=== PATIENT | male | born 1960 | race Caucasian/White ===

== ENCOUNTER 2016-09-14 23:41 | Inpatient (IN) | payer OTHER ==
[~2016-09-14] VITALS: Ht 185.4 cm; Wt 81.9 kg
[2016-09-14 23:52] VITALS: BP 128/76; PULSE 97; RESP 20; O2SAT 97
[2016-09-15] VITALS (11 sets, daily range): BP systolic 111–157; BP diastolic 60–100; PULSE 75–100; RESP 16–18; O2SAT 93–99
[2016-09-15 00:42] LABS: BASOPHILS % (AUTO) 0.1 % (0-3); EOSINOPHILS % (AUTO) 0.7 % (0-5); MONOCYTES % (AUTO) 7.5 % (4-12); Mean Corpuscular Hemoglobin 28.9 pg (27.0-35.0); Mean Corpuscular Volume 82.7 fL (81-100); NEUTROPHILS % (AUTO) 84.9 % (40-74); Platelet Count 248 bil/L (150-400)
--- NOTE | 2016-09-15 01:47 | ED.REPORT ---
HPI-Rash / Abscess Date of Service Sep 15, 2016 ED Provider: Jordon Bhatti MD Pt is a 55 year old male with a hx of HTN presenting to the ED complaining of 10 /10 left leg pain, redness and swelling onset 3 days ago. Associated symptoms include chills. Denies fever, swelling in the groin. The pt suspects that he may have diabetes but he has not been diagnosed. Nursing Notes Stated Complaint: INFLAMED LEFT LEG Chief Complaint: General Complaint Nursing Notes Reviewed: Yes Allergies: Coded Allergies: Morpholine Analogues (Verified Allergy, Unknown, 09/15/16) Penicillins (Verified Allergy, Unknown, 09/15/16) acetaminophen (Verified Allergy, Unknown, 09/15/16) amoxicillin (Verified Allergy, Unknown, 09/15/16) cyclobenzaprine (Verified Allergy, Unknown, 09/15/16) oxycodone (Verified Allergy, Unknown, 09/15/16) General Time Seen by MD: 01:44 Chief Complaint Red area, Tender/swollen area Hx Obtained From: Patient Arrived By: Walk-in Onset Occurred: 3 days ago Symptom Duration: Since onset Location: : Lower extremity Quality: Painful Severity: Current: Moderate Severity: Maximum: Moderate Associated with: Denies Fever Recent Healthcare: No recent doctor visit, No recent hospitalization Similar Sx Previous: No Past Medical History Past Medical History tetanus shot 06/20/2014 bipolar Chronic neck and back pain Cellulitis of R arm Reports: Hypertension Past Surgical History neck surgery Smoking History Current Every Day Smoker Occupation Unemployed Ambulatory Status Independent Review of Systems Musculoskeletal: Reports: Extremity pain, Extremity swelling Skin: Reports Rash, Reports Swelling Complete sys rev & neg: except as marked. Physical Exam Initial Vital Signs Vital Signs (First) Date Time Temp Pulse Resp B/P Pulse Ox O2 Delivery O2 Flow Rate FiO2 09/14/16 23:52 36.8 97 20 128/76 97 Room Air Initial VS: Reviewed, Vital signs normal Head / Eyes: Atraumatic, Normocephalic, PERRL ENT: Mucous membranes moist, Conjunctiva normal, No scleral icterus Neck: Supple, Non-tender, Full range of motion Respiratory: Breath sounds normal, Clear to auscultation, No respiratory distress Cardiovascular: Regular rate & rhythm, Heart sounds normal, Intact distal pulses Abdomen / GI: Soft, Non-tender, No guarding, No rebound, No distention Neurologic: Alert, Oriented, Nonfocal Psychiatric: Mood/affect normal, Behavior normal, Normal thought content General/Constitutional: Awake, Alert, No acute distress, Well appearing Lower Extremity / Pelvis / MS: Neurologic intact, Vascular intact Right Leg / Calf: Positive: Erythema present, Warmth present Entire left LE from knee down is erythematous and hot. Little area of athletes foot between 4th and 5th toes. Interpretation & Diagnostics Lab Results Interpretation Result Diagram: 09/15/16 0030 09/15/16 0030 Test 09/15/16 00:30 White Blood Count 17.4th/mm3 (3.8-10.1) Red Blood Count 5.09mil/mm3 (4.40-5.80) Hemoglobin 14.7g/dL (13.8-17.2) Hematocrit 42.1% (41.0-50.0) Mean Corpuscular Volume 82.7fL (81-100) Mean Corpuscular Hemoglobin 28.9pg (27.0-35.0) Mean Corpuscular Hemoglobin Concent 34.9% (32.0-37.0) Red Cell Distribution Width 14.5% (12.3-15.4) Platelet Count 248bil/L (150-400) Neutrophils (%) (Auto) 84.9% (40-74) Lymphocytes (%) (Auto) 6.6% (14-46) Monocytes (%) (Auto) 7.5% (4-12) Eosinophils (%) (Auto) 0.7% (0-5) Basophils (%) (Auto) 0.1% (0-3) Sodium Level 136mEq/L (134-144) Potassium Level 3.8mEq/L (3.5-5.2) Chloride Level 95mEq/L (97-108) Carbon Dioxide Level 27mmol/L (18-29) Blood Urea Nitrogen 14mg/dL (6-24) Creatinine 0.75mg/dL (0.76-1.27) Estimat Glomerular Filtration Rate 115mL/min (>59) Glucose Level 145mg/dL (60-99) Lactic Acid Level 1.3mmol/L (0.4-2.0) Calcium Level 8.8mg/dL (8.5-10.1) Total Bilirubin 0.4mg/dL (0.0-1.2) Aspartate Amino Transf (AST/SGOT) 29U/L (0-50) Alanine Aminotransferase (ALT/SGPT) 29U/L (0-44) Alkaline Phosphatase 82U/L (25-150) Total Protein 7.7g/dL (6.4-8.4) Albumin 3.7g/dL (3.4-5.0) Re-Eval/Medical Decision Med Decision/Clinical Course 55-year-old with left leg cellulitis, elevated white blood count at 17,000, but normal lactic acid. He was originally anticipated that he would be going home so he was treated with clindamycin IV to be followed by clindamycin prepack. However it was decided to admit him for further IV therapy. He will be admitted to Dr. De La Torre who requested that decision about further antibiotics be made by the admitting team. Re-Evaluation/Progress : Time of Eval: 05:31 Patient Status: Condition improved Re-Evaluation/Progress Note: Pt resting comfortably. Discussed plan for admission. Pt understands and agrees with plan. Consultation : Referral / Consult Name: Murali De La Torre MD Consulted With: Hospitalist Call Returned at: 05:38 Fruit Harvester: Will see patient, Agrees with plan, Accepts admit Counseled Regarding: Diagnosis, Lab results, Need for follow-up, When/why to return to ED Discharge & Departure Impression: Primary Impression: Cellulitis Site of cellulitis: extremity Site of cellulitis of extremity: lower extremity Laterality: left Qualified Code: L03.116 - Cellulitis of left lower limb Disposition: ADMITTED TO HOSPITAL Discharge Condition All VS Reviewed: Yes Condition: Improved Referrals: NOPCP (PCP) Jennifer Attestation Portions of this note were transcribed by Farrah Conti. I, Dr. Bhatti personally performed the history, physical exam and medical decision-making; I reviewed and confirmed the accuracy of the information in the transcribed note. Signed by: Jennifer Dunn, 09/15/2016 and 0541. Jordon Bhatti MD Sep 15, 2016 01:47 FARRAH CONTI Sep 15, 2016 02:00
[2016-09-15] MEDS ORDERED: 0.9% Sodium Chloride 1,000 ML IV ONE (02:18)
[2016-09-15] MEDS ORDERED: Clindamycin Inj 900 MG in IV Premix 1 EACH IV ONE (02:20)
[2016-09-15] MEDS ORDERED: Ondansetron 2 mg/mL 2 mL Inj IVPUSH PRN (05:45)
[2016-09-15] MEDS ORDERED: Alum-Mag Hydrox-Simeth 30 mL Suspension PO PRN ×2 (05:45→12:20)
[2016-09-15] MEDS ORDERED: _Clindamycin 150 mg Capsule PO SCH (06:30)
[2016-09-15] MEDS ORDERED: AMLO10TA3 PO (06:48)
--- NOTE | 2016-09-15 10:22 | NUR ---
Drug use TURBINE SUBASSEMBLER approached this RN stating that room smelled like smoke. This RN approached patient with TURBINE SUBASSEMBLER and floor RN who was in bathroom with another male. Patient was sitting on toilet. This RN requested that they remove all drugs from bathroom. Patient stated "I don't know how I am going to do this. I haven't had any for 8-10 hours". Patient then gave male person what appeared to be a pipe that was filled with substance. Also dropped 2 SQ needles on floor while doing so. Patient stated needles were new and not used yet. Male then grabbed items and left floor in hurry. Patient then admitted to this RN that he uses 2 grams of heroin every day. Charge nurse notified.
--- NOTE | 2016-09-15 10:39 | NUR ---
Visitors Pt was placed under "No Visitors", upon returning to room to place signage, the male friend whom appeared to have provided drugs to pt was in the room, at this point security requested the male guest leave immediately, pt is under restricted visitors. Guest left with out issue.
--- NOTE | 2016-09-15 10:46 | NUR ---
Social Work: Screen D: Per EMR review, pt is a 55 year old male admitted for Cellulitis Left Leg. Pt is [facility]. PCP is not listed. NOK is Isatu Jacobo, Mother, . Advanced directives offered to pt by RN. Readmit score not entered at this time. Pt discussed in am rounds. There is concern for possible substance use; pt denied during admission however pt has possible needle injection sites in forearms consistent with IV substance use. cnc service technician requesting CD assessment from TAX PROCESSOR. Shortly after request, RN found pt and an unknown male in the pt's bathroom attempting to use heroin. Unknown male left with several SQ needles and a pipe filled with what pt reports to be as heroin. Pt disclosed to RN that he uses heroin every 8-10 hours/daily for a total of 2grams per day. Pt states he has no interest in quitting and that his withdrawal symptoms are not managed with narcotics. Pt spoke of possibly leaving AMA if his withdrawal symptoms are not managed. TAX PROCESSOR spoke with RN. RN has paged hospitalist; he will come see the pt shortly to discuss care plan and options. Pt is being placed on behavior contract and will be allowed no visitors. Pt currently on IV Abx for cellulitis. A: Pt who is from [place] and with ADLs. P: TAX PROCESSOR to follow up with hospitalist re: care plan and to complete CD assessment when appropriate. BIANCA Fraire
[2016-09-15] MEDS ORDERED: LISI-567 PO (11:54)
[2016-09-15] MEDS ORDERED: Polyethylene Glycol (PEG) 17 Gm Powder PO PRN (12:20)
[2016-09-15] MEDS: Vancomycin Dose per Pharmacist XX SCH (12:40)
[2016-09-15] MEDS: Lactated Ringer's 1,000 ML IV SCH (13:03)
--- NOTE | 2016-09-15 13:18 | PCM.HPMED ---
Subjective Date of Service Sep 15, 2016 Primary Provider: Admitting Physician: Murali De La Torre MD Primary Care Physician: Aaron Attending Physician: Murali De La Torre MD Admit Status: From the Emergency Department Chief Complaint: Left lower extremity swelling History of Present Illness: This is a 55 his old male, with past medical history of MRSA, hypertension, heroine dependency, chronic tobacco abuse with a 40 pack smoking. He presented to the hospital with pain and swelling in the left lower extremity which has been going on for 2-3 days or so. Patient soundly have an extensive cellulitis on the left lower extremity from ankle to above the knee. Associated symptoms include chills, subjective fever. Patient denies chest pain , shortness of breath, abdominal pain, no nausea, no vomiting ER workup revealed a leukocytosis of 17,000. Patient is acutely ill with clinical symptom of sepsis and being admitted to the hospital for appropriate care. Patient is homeless. On arrival to the floor, patient was caught by nursing staff preparing a heroine injection. Security was notified and the material and were taken away from him. Patient admits to at least 3 times today heroine injection for many years. Review of Systems: A comprehensive review of system by 12 points is negative except for low extremity cellulitis, pain, fever, chills as described above in history of present illness Allergies Coded Allergies: Morpholine Analogues (Verified Allergy, Unknown, 09/15/16) Penicillins (Verified Allergy, Unknown, 09/15/16) acetaminophen (Verified Allergy, Unknown, 09/15/16) amoxicillin (Verified Allergy, Unknown, 09/15/16) cyclobenzaprine (Verified Allergy, Unknown, 09/15/16) oxycodone (Verified Allergy, Unknown, 09/15/16) Home Medications None PMH MRSA soft tissue infection Tobacco abuse Heroine dependence Hypertension Surgical History Neck surgery ( fusion of vertebrae) Leg surgery ( unspecified) Family History Family history is reviewed and is noncontributory to the present illness Social History Hx Alcohol Use: Yes Hx Substance Use: Yes (cannibus) Smoking Status: Current Every Day Smoker, Heavy Tobacco Smoker (near 40 yeas pack smoking) Living Arrangement: Homeless Exam Vital Signs Vital Sign - Last Date Time Temp Pulse Resp B/P Pulse Ox O2 Delivery O2 Flow Rate FiO2 09/15/16 10:42 36.8 89 16 111/60 93 Room Air Intake and Output 09/14/16 09/14/16 09/15/16 Cumulative From/Thru 15:00 23:00 07:00 09/14/16 23:52 - 09/15/16 06:39 Intake Total 1000 ml 1000 ml Balance 1000 ml 1000 ml Intake IV Total 1000 ml 1000 ml Exam General: Well-nourished male, acutely ill appearing, no acute distress Head: Normocephalic and atraumatic Neck: Supple, no JVD, trachea is midline Chest: Respiratory effort Lung: clear bilaterally, coronal wheezing Heart: S1-S2 regular rate and rhythm without murmur Abdomen: Soft nontender nondistended. Audible bowel sounds quadrant Extremity: Left lower extremity with extensive redness and cellulitis from ankle to above the knee. Tender warmth to touch. Left lower extremity evidently larger in diameter comparing to the right Skin: Multiple tattoos. Neuro : Patient is awake, alert, oriented time 3. Lab and Diagnostics Result Diagram: 09/15/162909/15/1629 Assessment & Plan 1. Sepsis: Presented at admission 1. LE cellulitis/soft tissue infection: Presented on admission 3. H/o Heroin abuse 4. Tobaccoism This is a 55 years male, homeless, history of MRSA and heroin dependence. Vision presented to the hospital with extensive left colectomy to cellulitis involving ankle to above the knee. Patient has signs an clinical symptom of sepsis. His heart rate is on 100 100 Eddie and examined this patient, his white cell count is 17,000, he is hypothermic and look toxic and physical examination. Nursing staff was sent a phone patient preparing his heroin injection in the bathroom, sitting gentleman present for his apparently is his supplier. Security took the drug and his belonging it away from him. Patient stated he uses heroine 3 times a day. Admit to PCU. Obtain left lower extremity ultrasound to rule out DVT. Start clindamycin 600 mg IV every 8 hours. Vancomycin as the pharmacist. Obtain blood culture x 2. Would obtain echocardiogram if blood cultures positive. Lactic acid, pro calcitonin level. IV hydration with normal saline at 100 mL per hour. For pain morphine sulfate 1-2 mg IV every 4 hours when necessary. I discussed with patient about methadone program as an outpatient. I explain to him that we cannot start this medication in the hospital. I expect the morphine to mitigate very likely withdrawal symptom of heroine. This is a very difficult patient careful, given his addiction to heroin . I doubt that he will stay in the hospital to complete his antibiotics treatment. I had a long talk with this patient in front of nursing staff regarding the necessity for IV antibiotics to prevent further complication including septic shock. Patient voiced understanding Adnexa pain for DVT prophylaxis. Nicotine patch for smoking urge consumer services consultant consulted for homelessness and drug dependence. Pain Evaluation: Adequate Pain Control VTE Prophylaxis: Sub-Q Enoxaparin Resuscitation Status: CPR: Attempt Resuscitation Time spent 25 minutes Sher Garcia MD Sep 15, 2016 13:18
--- NOTE | 2016-09-15 13:19 | PCM.PHAPRO ---
Progress Left lower extremity swelling Patient is an 55 y.o. male receiving vancomycin for cellulites. Concurrent abx include: clinda. WBC count is 17.4 and the patient is afebrile. Patient is 82 kg, 73inches tall with a SCr of 0.75 mg/dL-- estimated CrCl of ~ 120mL/min. Based on patient parameters vancomycin will be dosed at 1250mg q12h with a target trough of 10-15 /mL. Trough will be drawn prior to the 4th dose on 09/17 @ 0100. Pharmacy will follow daily and adjust as appropriate. Thank you for the consult in the care of this patient. RTM PharmD John Gregg Sep 15, 2016 13:18
[2016-09-15] MEDS ORDERED: Vancomycin Inj 1,500 MG in 0.9% Sodium Chloride 500 ML IV ONE (14:00)
[2016-09-15] MEDS: Clindamycin Inj 600 MG in IV Premix 1 EACH IV SCH ×2 (14:05→17:23)
[2016-09-15] MEDS: Ondansetron 2 mg/mL 2 mL Inj IVPUSH PRN (17:32)
--- NOTE | 2016-09-15 17:42 | NUR ---
Nausea Pt c/o of all over malaise, nausea, chills, and is diaphoretic, the line drawn on left leg has advance and leg appears redder. Pt afebrile, given zofran 8 mg IVP. Pt states it's not withdrawals, "I normally don't withdrawal until 12-24 hours after last injection." MD notified. Will continue to monitor.
[2016-09-15] MEDS ORDERED: Vancomycin Inj 1,000 MG in IV Premix 1 EACH IV SCH (20:30)
[2016-09-16] VITALS (9 sets, daily range): BP systolic 163–180; BP diastolic 92–109; PULSE 65–84; RESP 18; O2SAT 95–100
--- NOTE | 2016-09-16 00:12 | NUR ---
Bag in linen Small bag with seven round cotton ball like objects in it found in pt's bed during linen change, tossed in sharps container with Khadar Pérez RN witnessing
[2016-09-16] MEDS: Lactated Ringer's 1,000 ML IV SCH ×2 (00:27→07:44)
[2016-09-16] MEDS: Clindamycin Inj 600 MG in IV Premix 1 EACH IV SCH ×2 (00:27→07:33)
[2016-09-16] MEDS: Ondansetron 2 mg/mL 2 mL Inj IVPUSH PRN ×5 (01:35→20:20)
[2016-09-16] MEDS: Vancomycin Inj 1,250 MG in 0.9% Sodium Chloride 250 ML IV SCH ×2 (01:37→16:01)
[2016-09-16] MEDS ORDERED: MetoCLOpramide 5 mg/mL 2 mL Inj IVPUSH PRN (03:50)
--- NOTE | 2016-09-16 06:17 | NUR ---
Withdrawal Symptoms Patient has been experiencing withdrawal symptoms (heroin user) for majority of shift. Patient has severe nausea. Treated with Zofran but as shift progressed the effectiveness was reduced. Paged physician for an order for an additional anti-emetic and order for Reglan was made. Administered Reglan and nausea was decreased so that patient could rest. Treatment for pain in left leg with Morphine 2MG IVP every 4 hours has also been minimally effective in helping with withdrawal symptoms. Patient has asked multiple times if he could "just leave the property for a couple hours so that I can get well?" Advised patient that he is able to leave whenever he chooses but he cannot come back and continue his treatment. Advised that if he leaves it would be against medical advice and he would be discharged. Addendum: 09/16/16 at 0627 by YARA CRUZ RN BP pt's BP was 176/103 in AM, pagemanda and updated, order fro PO Lisinopril obtained.
[2016-09-16 06:44] LABS: Mean Corpuscular Hemoglobin 28.6 pg (27.0-35.0)
[2016-09-16] MEDS: Vancomycin Dose per Pharmacist XX SCH (07:45)
[2016-09-16] MEDS: 0.9% Sodium Chloride 1,000 ML IV SCH (08:49)
[2016-09-16] MEDS ORDERED: Calcium GLUCO 10% (mEq) Inj 4.65 MEQ in Dextrose 5% 50 ML IV ONE (08:50)
[2016-09-16] MEDS ORDERED: Insulin Human REGular 300 Unit/3 mL Inj IV ONE (08:50)
[2016-09-16] MEDS ORDERED: Albuterol 2.5 mg/3 mL Inhalation Solution NEB ONE (08:50)
[2016-09-16] MEDS ORDERED: Dextrose 50% Water 50 mL Inj IV ONE (08:50)
[2016-09-16] MEDS ORDERED: Calcium GLUCO 10% (Gm) 1 Gm/10 mL 50 mL Inj IV ONE (09:15)
--- NOTE | 2016-09-16 09:59 | DRSVH ---
PROCEDURE: US VEINOUS LEG DUPLEX UNILATERAL, LEFT INDICATIONS: edema, pain TECHNIQUE: Real-time imaging, as well as color and pulse Doppler interrogation, were performed of the lower extr emity deep veins from the inguinal ligament to the popliteal fossa. COMPARISON: None. FINDINGS: The deep veins are normally compressible, and free of intraluminal thrombus. Color and pu lse Doppler demonstrate normal phasic intraluminal flow. There is normal augmentation response to di stal compression maneuver. There is significant edema in the lower leg with the calf vessels not wel l visualized. IMPRESSION: 1. No evidence of deep venous thrombosis in the left lower extremity. Dictated by: Clayton Gallegos M.D. on 09/16/2016 at 9:56 Approved by: Clayton Gallegos M.D. on 09/16/2016 at 9:58
[2016-09-16] MEDS: cloNIDine 0.1 mg Tablet PO SCH ×3 (10:43→20:21)
[2016-09-16] MEDS ORDERED: PIPERACILLIN TAZOBACTAM IV SCH (11:30)
[2016-09-16] MEDS: Piper-Tazo 3.375 Gm/50 mL D5W Minibag Plus - Q8H over 4 hrs IV SCH ×4 (12:49→20:20)
--- NOTE | 2016-09-16 15:36 | PCM.PNMED ---
Subjective Date of Service Sep 16, 2016 Subjective This is a 55 year old male, with past medical history of MRSA, hypertension, heroine dependency, chronic tobacco abuse with a 40 pack smoking. He presented to the hospital with pain and swelling in the left lower extremity which has been going on for 2-3 days. This morning he complains of abdominal pain. He is much more alert this morning than yesterday per staff report. He complains of abdominal pain that has been going on since just after arrival. He is having some vomiting this morning after taking a couple bites of breakfast. Exam Vital Signs Vital Sign - Last Date Time Temp Pulse Resp B/P Pulse Ox O2 Delivery O2 Flow Rate FiO2 09/16/16 06:10 36.7 66 18 178/103 97 Room Air Intake and Output 09/15/16 09/15/16 09/16/16 Cumulative From/Thru 15:00 23:00 07:00 09/14/16 23:52 - 09/16/16 06:43 Intake Total 1636 ml 2288 ml 4924 ml Output Total 1725 ml 2440 ml 4165 ml Balance -89 ml -152 ml 759 ml Intake Oral 1636 ml 236 ml 1872 ml IV Total 2052 ml 3052 ml Output Urine Total 1725 ml 2440 ml 4165 ml # Bowel Movements 0 0 0 Exam General: Mild distress and agitation, well-developed, well-nourished HEENT: Normocephalic, atraumatic. External ears without defect. Anicteric sclerae, moist conjunctivae, and no lid lag. Neck: Supple with full range of motion. No jugular venous distension. Cardiovascular: Regular rate and rhythm with no murmurs, rubs, or gallops appreciated Pulmonary: Clear to auscultation bilaterally with no crackles, wheezes, or rhonchi. Normal respiratory effort with no use of accessory muscles. Abdomen: Bowel tones present. Soft, tender in LLQ with rebound tenderness, nondistended, no guarding. No hepatosplenomegaly or masses appreciated. Extremities: Left lower extremity bright red circumferentially 3 inches below the knee to the ankle with pink coloration extending above the knee, warm to the touch. Otherwise no clubbing, cyanosis, edema, or lymphadenopathy appreciated. Skin: LLE as above, multiple tattoos otherwise normal temperature, turgor, and texture; no rash, ulcers, or subcutaneous nodules appreciated. Neurological: Cranial nerves grossly intact. Normal muscle strength, tone, and bulk. No known gait impairment. Psychiatric: Alert and oriented to person, place, and time. Lab and Diagnostics Result Diagram: 09/16/1653409/16/16534 Additional Diagnostics PROCEDURE: US VEINOUS LEG DUPLEX UNILATERAL, LEFT FINDINGS: The deep veins are normally compressible, and free of intraluminal thrombus. Color and pulse Doppler demonstrate normal phasic intraluminal flow. There is normal augmentation response to distal compression maneuver. There is significant edema in the lower leg with the calf vessels not well visualized. IMPRESSION: 1. No evidence of deep venous thrombosis in the left lower extremity. Dictated by: Clayton Gallegos M.D. on 09/16/2016 at 9:56 Assessment & Plan 55 years male, homeless, history of MRSA and heroin dependence with extensive left lower extremity cellulitis involving ankle up to above the knee. 1. Sepsis: Presented at admission His heart rate was 100 on initial examination, his white cell count was 17,000, he has obvious infection of left lower extremity Pro calcitonin elevated at 0.33 Lactic acid normal at 1.3 Blood cultures show no growth after 24 hours obtain echocardiogram if blood cultures positive. IV hydration with normal saline at 100 mL per hour. 2. LE cellulitis/soft tissue infection: Presented on admission I had a long talk with this patient in front of nursing staff regarding the necessity for IV antibiotics to prevent further complication including septic shock. Patient voiced understanding Morphine sulfate 1-2 mg IV every 4 hours when necessary to treat leg pain and will likely mitigate withdrawal symptom of heroine. Ultrasound shows no evidence of deep vein thrombosis in left lower extremity. Vancomycin and Zosyn ordered for antibiotic treatment. 3. H/o Heroin abuse youth services librarian consulted for homelessness and drug dependence Clonidine 0.1 mg every 6 hours to help with hypertension and also withdrawal. Patient was found preparing injection in his bathroom, visiting gentleman apparently was his supplier. Security removed drug and belongings from patient. Patient stated he uses heroine 3 times a day and injects into his neck. He has never injected into his leg Methadone program discussed with patient upon admission, patient aware of inability to discharge from hospital with this medication. 4. Hypertension, present on admission, chronicity unknown Clonidine 0.1 mg every 6 hours When necessary IV labetalol for systolic blood pressure greater than 160 sustained for greater than 30 minutes 5. Tobacco abuse disorder, present on admission 40 pack year history Nicotine patch for smoking urge Lovenox for DVT prophylaxis. VTE Prophylaxis: Sub-Q Enoxaparin Resuscitation Status: CPR: Attempt Resuscitation Attending Statement The patient was seen and examined together with Dr. Leach on 09/16/2016 and I agree with the history, exam and plan as outlined in the note above. Krystle Leach DO Sep 16, 2016 07:37 Shahab Rodrigues MD Sep 17, 2016 14:07
--- NOTE | 2016-09-16 17:33 | NUR ---
Withdrawal Patient continues to have nausea and vomiting. Patient has been administered Zofran for relief and was effective temporarily. Patient has spastic movements to arms and is sleeping most of day. Patient is hard to wake up at times. Patient has received IV morphine for pain.
[2016-09-17] VITALS (11 sets, daily range): BP systolic 138–189; BP diastolic 75–100; PULSE 60–66; RESP 18; O2SAT 97–100
[2016-09-17] MEDS: 0.9% Sodium Chloride 1,000 ML IV SCH ×2 (00:42→16:43)
[2016-09-17] MEDS ORDERED: Vancomycin Serum Trough XX ONE (01:00)
[2016-09-17] MEDS: Labetalol 5 mg/mL 4 mL Inj IVPUSH PRN ×2 (01:05→04:50)
[2016-09-17] MEDS: Ondansetron 2 mg/mL 2 mL Inj IVPUSH PRN ×3 (01:05→21:37)
[2016-09-17] MEDS ORDERED: Vancomycin Inj 1,500 MG in 0.9% Sodium Chloride 500 ML IV SCH (02:30)
[2016-09-17] MEDS: cloNIDine 0.1 mg Tablet PO SCH ×4 (02:42→21:57)
--- NOTE | 2016-09-17 02:43 | PCM.PHAPRO ---
Progress Date of Service: Sep 17, 2016 Vancomycin dosing by pharmacy for 55 y/o man O: * He was receiving vancomycin 1250 mg IV every 12 hours * Vancomycin trough level of 6.8 mcg/mL prior to the fourth dose * SCr of 0.81 mg/dL on 09/16 * Cultures pending A: * The trough is low and will likely remain low once vancomycin concentrations reach steady-state * SCr appears stable so far P: * Increase vancomycin to 1500 mg IV every 12 hours * Target trough range of 10 - 15 mcg/mL * Draw another trough level after 3 doses Thank you. Pharmacy will continue to follow. Princess Trevino, PharmD Princess Trevino Sep 17, 2016 02:43
[2016-09-17] MEDS: Piper-Tazo 3.375 Gm/50 mL D5W Minibag Plus - Q8H over 4 hrs IV SCH ×4 (04:50→12:20)
[2016-09-17 06:40] LABS: BASOPHILS % (AUTO) 0.4 % (0-3); EOSINOPHILS % (AUTO) 0.5 % (0-5); MONOCYTES % (AUTO) 5.9 % (4-12); Mean Corpuscular Hemoglobin 28.7 pg (27.0-35.0); Mean Corpuscular Volume 80.7 fL (81-100); NEUTROPHILS % (AUTO) 84.6 % (40-74); Platelet Count 410 bil/L (150-400)
--- NOTE | 2016-09-17 07:05 | NUR ---
Pain/Hypertension (Assumed at at 2345) Pt c/o pain at left leg and back 04/13, Morphine with Benadryl given, pain sleeping afterwards. Bright red,edema at left LL, elevated on pillow. BP up to 189/100, Labetalol 20mg IV givenx2, recent check in am BP down to 158/89.
[2016-09-17] MEDS: Vancomycin Dose per Pharmacist XX SCH (08:30)
--- NOTE | 2016-09-17 13:51 | NUR ---
Social Work Continued Discharge Planning: SW met with patient at bedside to discuss discharge plans and to conduct CD assessment. Patient didn't arouse for SW. SW to follow at bedside later this afternoon to discuss plans. Per report in rounds, possible echo today. ID plans pending ID consult. SW to follow. Shraddha VALENZUELA
[2016-09-17] MEDS ORDERED: Dalbavancin Inj 1,500 MG in Dextrose 5% 500 ML IV ONE (16:00)
--- NOTE | 2016-09-17 16:01 | PCM.PNMED ---
Subjective Date of Service Sep 17, 2016 Subjective This is a 55 year old male, with past medical history of MRSA, hypertension, heroine dependency, chronic tobacco abuse with a 40 pack smoking. He presented to the hospital with pain and swelling in the left lower extremity which has been going on for 3 days prior to admission. He is doing much better this morning. He reports using methamphetamines in the past and heroine use for the last 2 years. He was able to eat some chocolate today however this is the first time he has not been nauseous with eating in the last 3 days. He reports no headache, chest pain, or abdominal pain. The pain in his leg is more localized to the anterior aspect at this point. Exam Vital Signs Vital Sign - Last Date Time Temp Pulse Resp B/P Pulse Ox O2 Delivery O2 Flow Rate FiO2 09/17/16 06:04 60 158/89 09/17/16 04:23 36.5 18 98 Room Air Intake and Output 09/16/16 09/16/16 09/17/16 Cumulative From/Thru 15:00 23:00 07:00 09/14/16 23:52 - 09/17/16 06:19 Intake Total 2884 ml 3037 ml 22829 ml Output Total 1775 ml 2400 ml 8340 ml Balance 1109 ml 637 ml 2505 ml Intake Oral 1900 ml 1500 ml 5272 ml IV Total 984 ml 1537 ml 5573 ml Output Urine Total 1775 ml 2400 ml 8340 ml # Bowel Movements 0 0 Exam General: No acute distress, well-developed, well-nourished HEENT: Normocephalic, atraumatic. External ears without defect. Anicteric sclerae, moist conjunctivae, and no lid lag. Neck: Supple with full range of motion. No jugular venous distension. Cardiovascular: Regular rate and rhythm with no murmurs, rubs, or gallops appreciated Pulmonary: Clear to auscultation bilaterally with no crackles, wheezes, or rhonchi. Normal respiratory effort with no use of accessory muscles. Abdomen: Bowel tones present. Soft, tender in LLQ with rebound tenderness, nondistended, no guarding. No hepatosplenomegaly or masses appreciated. Extremities: Left lower extremity bright red anteriorly mid duncan in a multilobulated oval shape. [place] skin with shriveling distal to this area, warm to the touch. Otherwise no clubbing, cyanosis, edema, or lymphadenopathy appreciated. Skin: LLE as above, multiple tattoos otherwise normal temperature, turgor, and texture; no rash, ulcers, or subcutaneous nodules appreciated. Neurological: Cranial nerves grossly intact. Normal muscle strength, tone, and bulk. No known gait impairment. Psychiatric: Alert and oriented to person, place, and time. Lab and Diagnostics Result Diagram: 09/17/1653309/17/16533 Additional Diagnostics PROCEDURE: US VEINOUS LEG DUPLEX UNILATERAL, LEFT FINDINGS: The deep veins are normally compressible, and free of intraluminal thrombus. Color and pulse Doppler demonstrate normal phasic intraluminal flow. There is normal augmentation response to distal compression maneuver. There is significant edema in the lower leg with the calf vessels not well visualized. IMPRESSION: 1. No evidence of deep venous thrombosis in the left lower extremity. Dictated by: Clayton Gallegos M.D. on 09/16/2016 at 9:56 Assessment & Plan 55 years male, homeless, history of MRSA and heroin dependence with extensive left lower extremity cellulitis involving ankle up to above the knee. 1. Sepsis: Presented at admission His heart rate was 100 on initial examination, his white cell count was 17,000, he has obvious infection of left lower extremity Procalcitonin elevated at 0.33 Lactic acid normal at 1.3 Blood cultures show single bottle positive with an positive cocci likely strep, ASO pending Echocardiogram pending IV hydration with normal saline at 100 mL per hour. 2. LE cellulitis/soft tissue infection, likely strep Presented on admission Morphine sulfate 1-2 mg IV every 4 hours when necessary to treat leg pain and will likely mitigate withdrawal symptom of heroine. Ultrasound shows no evidence of deep vein thrombosis in left lower extremity. Dalbavancin single dose Vancomycin and Zosyn discontinued Infectious disease consulting, we appreciate their input 3. H/o Heroin abuse foreign exchange services manager consulted for homelessness and drug dependence Clonidine 0.1 mg every 6 hours to help with hypertension and also withdrawal. Patient was found preparing injection in his bathroom, visiting gentleman apparently was his supplier. Security removed drug and belongings from patient. Patient stated he uses heroine 3 times a day and injects into his neck. He has never injected into his leg she started using 2 years ago. Methadone program discussed with patient upon admission, patient aware of inability to discharge from hospital with this medication. 4. Hypertension, present on admission, chronicity unknown Clonidine 0.1 mg every 6 hours Amlodipine 5mg daily 5. Tobacco abuse disorder, present on admission 40 pack year history Nicotine patch for smoking urge Lovenox for DVT prophylaxis. Pain Evaluation: Adequate Pain Control VTE Prophylaxis: Sub-Q Enoxaparin Resuscitation Status: CPR: Attempt Resuscitation Attending Statement The patient was seen and examined together with Dr. Leach on 09/17/2016 and I agree with the history, exam and plan as outlined in the note above. Krystle Leach DO Sep 17, 2016 08:38 Shahab Rodrigues MD Sep 18, 2016 12:44
--- NOTE | 2016-09-17 18:16 | NUR ---
Family Visit Pt's family [mom, dad, and female family member] here to visit pt. Family informed that pt is unable to have visitors at this time, based on MD order and previous events [which we were unable to discuss with family]. Pt's family verbally upset. Spoke with charge out clerk, and MD paged. After more conversation with Md, it was decided that only pt's mom and dad are able to visit [if pt is agreeable to their visit] and only for 15 minutes, with the window open for supervision.
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
[2016-09-18] VITALS (14 sets, daily range): BP systolic 98–179; BP diastolic 63–95; PULSE 53–77; RESP 15–28; O2SAT 96–100
[2016-09-18] MEDS: 0.9% Sodium Chloride 1,000 ML IV SCH ×3 (00:25→22:19)
[2016-09-18] MEDS: cloNIDine 0.1 mg Tablet PO SCH ×4 (03:19→20:43)
--- NOTE | 2016-09-18 04:30 | NUR ---
Assumed Care of pt: Assumed care of pt just after 0130. Pt was sleeping at that time. SB in the 50s on the monitor. Pt later awoke and was medicated with morphine for back and LLE pain. Assessment completed at this time with vitals. Scheduled blood pressure medication administered. Pt denied any nausea during assessment. Pt fell back asleep. Will cont. to monitor.
--- NOTE | 2016-09-18 06:36 | NUR ---
PIV: Pt was up to the bathroom and dislodged/bent his IV. IV unsalvageable. Pt requesting IV therapy to place new PIV. IV therapy called and notified of new IV needed. IVF placed on stanby until new IV is placed.
[2016-09-18 07:08] LABS: BASOPHILS % (AUTO) 0.7 % (0-3); EOSINOPHILS % (AUTO) 1.3 % (0-5); MONOCYTES % (AUTO) 7.3 % (4-12); Mean Corpuscular Hemoglobin 28.7 pg (27.0-35.0); Mean Corpuscular Volume 81.6 fL (81-100); Platelet Count 435 bil/L (150-400)
[2016-09-18] MEDS ORDERED: Propofol 10,000 mCg/mL 20 mL Inj ONE (08:41)
[2016-09-18] MEDS ORDERED: Succinylcholine Chloride 20 mg/mL 5 mL Inj ONE (08:41)
[2016-09-18] MEDS ORDERED: fentaNYL-PF 50 mCg/mL 2 mL Inj ONE (08:41)
[2016-09-18] MEDS ORDERED: Rocuronium 10 mg/mL 5 mL Inj ONE (08:41)
[2016-09-18] MEDS: Ondansetron 2 mg/mL 2 mL Inj IVPUSH PRN (08:53)
--- NOTE | 2016-09-18 11:54 | DRSVH ---
[facility] [address] [place] [address] Echocardiogram Report Name: ARTHUR RANGEL Date: 09/18/2016 Height: 73 in Hospital Exam Location: [facility] Weight: 180 lb Gender: Male BSA: 2.1 m2 : 1960 Age: 55 yrs BP: 179/95 mmHg Reason For Study: POSITIVE BLOOD CULTURES Ordering Physician: Performed By: Leeann MCKEONIST [facility] Interpretation Summary The left ventricle is normal in size. The ejection fraction is estimated to be 60-65%. The right ventricle is normal in size and function. No significant valvular pathology seen. No obvious valvular vegetation seen. Consider AVEL if clinical suspicion for endocarditis is high. The ascending aorta is mildly enlarged. Procedure: A two-dimensional transthoracic echocardiogram with color flow and Doppler was performed. The study quality was technically adequate. There is no prior echocardiogram noted for this patient. The patient was in sinus bradycardia with heart rates between 50-65 bpm during the exam. Left Ventricle: The left ventricle is normal in size. Proximal septal thickening is noted. There is no echo evidence for significant left ventricular outflow tract obstruction. There is no thrombus. The ejection fraction is estimated to be 60-65%. There are no focal wall motion abnormalities. Spectral Doppler of the mitral valve shows a normal E/A wave ratio. Right Ventricle: The right ventricle is normal in size and function. Atria: The left atrium is mildly dilated. Right atrial size is normal. The interatrial septum is intact with no evidence for an atrial septal defect. There is no Doppler evidence for an interatrial shunt. Mitral Valve: The mitral valve leaflets are slightly calcified. There is no vegetation seen on the mitral valve. Redundant elongated chordae are noted. There is trace mitral regurgitation. Aortic Valve: The aortic valve is normal in structure and function. There is no aortic valvular vegetation. There is no aortic valve stenosis. No aortic regurgitation is present. Tricuspid Valve: The tricuspid valve is normal in structure and function. There is no tricuspid valve vegetation. There is trace tricuspid regurgitation. The right ventricular systolic pressure is estimated at 25 mmHg assuming a right atrial pressure of 3 mm Hg. Pulmonic Valve: The pulmonic valve is not well seen, but is grossly normal. No gross evidence of valvular vegetation. There is no pulmonic valvular regurgitation. Great Vessels: The aortic root is at the upper limits of normal in size. There is aortic root sclerosis/calcification. The ascending aorta is mildly enlarged. The IVC is of normal diameter and collapses greater than 50% with a sniff. This suggests a low right atrial pressure of 3 mm Hg. Pericardium/ Pleura There is no pericardial effusion. MMode/2D Measurements & Calculations LVIDd: 5.0 cm LA dimension: 3.8 cm RA long axis LVOT diam LVIDs: 2.7 cm FS: 44.9 % LA A2 area: 24.6 cm RA area AoV Opening EPSS: 0.43 cm LA A4 area: 18.9 cm IVSd: 1.00 cm LA length (vol): 5.2 cm: 15.6 cm Ao root diam LVPWd: 1.4 cm LA vol: 75.5 ml RA vol LA vol index : 43.7 ml Aortic Jxn RA : 21.2 mm2 asc Aorta IVC diam: 1.4 cm Diam: 3.7 cm LV sandoval. diameter/BSA LV sys. diameter/BSA RVD1 (basal) (cm/m^2): 2.4 (cm/m^2): 1.3 Doppler Measurements & Calculations Ao V2 max MV E max tato MV E/A: 1.4 TR max tato : 138.2 cm/sec : 78.3 cm/sec Med Peak E' Tato : 234.8 cm/sec Ao max PG MV A max tato TR max PG : 7.6 mmHg : 54.4 cm/sec E/E' med: 10.5 : 22.0 mmHg Ao mean PG MV P1/2t: 63.0 msec Lat Peak E' Tato PA V2 max : 82.1 cm/sec LVOT Max Tato E/E' lat: 6.4 PA mean PG : 114.4 cm/sec E/e' average: 8.5 Pulm A Revs Dur PA Accel Time ADIA(I,D): 3.3 cm : 0.11 sec sev ratio MV A dur: 0.12 sec MV dec time MV P1/2t max tato Ao V2 mean LV V1 max PG : 0.22 sec : 94.9 cm/sec MVA(P1/2t): 3.5 cm2 Ao V2 VTI: 26.3 cm LV V1 VTI ADIA(V,D): 3.6 cm2 : 19.8 cm PA V2 mean ADIA indexed to BSA Pulm A Revs Dur - MV : 57.4 cm/sec (cm^2/m^2): 1.6 A Dur: 0.02 msec Reading Physician:LUIS
--- NOTE | 2016-09-18 13:18 | PROG NOTE ---
[address] [address] PROGRESS NOTE PATIENT: ARTHUR RANGEL : 1960 MR#: [id number] ADMIT: 09/15/2016 JOB ID: [id number] DATE: 09/18/2016 INFECTIOUS DISEASE FOLLOW UP NOTE: REASON FOR FOLLOWUP: Left lower extremity cellulitis. INTERVAL HISTORY: The patient reports that in general his left lower extremity below the knee is getting better and better but the central area of tenderness and inflammation right around the mid tibia is no better and still very tender and warm. He has no fevers, though he does note some chills overnight. No significant sweats. No cough, shortness of breath, chest pain, nausea or vomiting. PHYSICAL EXAMINATION: Reveals an afebrile gentleman, temperature 36.9, pulse 56, respiratory rate 24, blood pressure 144/80. He is lying in bed, in no acute distress. Oral cavity benign. Lungs clear. Cardiac tones without murmur. The left lower extremity has about a 6 x 4 area now right around the mid tibial shaft of intense erythema which does now appear to be developing some fluctuance as if it may be an abscess, but there is no spontaneous drainage. The rest of the leg has essentially normalized. LABORATORIES: Include a white count of 11,000, 77% segs. His creatinine is 0.71. LFTs are normal. Procalcitonin is down to 0.1. Streptozyme positive at 723, a very strongly positive reading which indicates this is all likely group A strep. Hep C and HIV are pending. In terms of micro, one blood culture grew coag-negative staph, which I assumed to be a contaminant. IMPRESSION: This patient has a streptococcal infection of the left lower extremity which is largely resolved but he is left with what appears to be an evolving central abscess. Yesterday, because of his concerns about IV access and a possible AMA discharge, we gave him a dose of dalbavancin to make sure he had good antibiotic coverage for this infection on board. At this point, he requires no other antibiotics. He may, however, require an incision and drainage if this starts to evolve into a more focal fluctuant abscess as opposed to the more diffuse cellulitic process when he came in. RECOMMENDATIONS: 1. No additional antibiotics. 2. His IV could probably be pulled at this point, as he is receiving some maintenance fluids but is actually drinking fairly well. 3. I would ask surgery whether or not an I and D is indicated. 4. Regardless of whether the patient gets an I and D or not, he has essentially completed his course of antibiotics and could be discharged at anytime without additional oral or IV antibiotics. 5. ID will go ahead and sign off at this time as there are no additional active issues. Please do not hesitate to call me if there are questions or issues with this patient.
[2016-09-18] MEDS ORDERED: Vancomycin Serum Trough XX ONE (14:00)
--- NOTE | 2016-09-18 14:49 | PCM.PNMED ---
Subjective Date of Service Sep 18, 2016 Subjective This is a 55 year old male, with past medical history of MRSA, hypertension, heroine dependency, chronic tobacco abuse with a 40 pack smoking. He presented to the hospital with pain and swelling in the left lower extremity which has been going on for 3 days prior to admission. Patient reports feeling better this morning, no headache, abdominal pain, chest pain, or shortness of breath. He continues to have some difficulty ambulating on his left leg if it remains painful to do so. Exam Vital Signs Vital Sign - Last Date Time Temp Pulse Resp B/P Pulse Ox O2 Delivery O2 Flow Rate FiO2 09/18/16 04:00 75 09/18/16 03:12 36.6 28 179/95 99 Room Air Intake and Output 09/17/16 09/17/16 09/18/16 Cumulative From/Thru 15:00 23:00 07:00 09/14/16 23:52 - 09/18/16 06:32 Intake Total 3161 ml 2535 ml 16475 ml Output Total 2850 ml 3450 ml 53242 ml Balance 311 ml -915 ml 1901 ml Intake Oral 1800 ml 1500 ml 8572 ml IV Total 1361 ml 1035 ml 7969 ml Output Urine Total 2850 ml 3450 ml 60879 ml # Bowel Movements 0 0 Exam General: No acute distress, well-developed, well-nourished HEENT: Normocephalic, atraumatic. External ears without defect. Anicteric sclerae, moist conjunctivae, and no lid lag. Neck: Supple with full range of motion. No jugular venous distension. Cardiovascular: Regular rate and rhythm with no murmurs, rubs, or gallops appreciated Pulmonary: Clear to auscultation bilaterally with no crackles, wheezes, or rhonchi. Normal respiratory effort with no use of accessory muscles. Abdomen: Bowel tones present. Soft, tender in LLQ with rebound tenderness, nondistended, no guarding. No hepatosplenomegaly or masses appreciated. Extremities: Left lower extremity bright red anteriorly mid duncan in a multilobulated oval shape. This area is more pronounced today with palpable fluctuance. Shriveling skin due to reduced edema surrounding edema and distal to this area, warm to the touch. Otherwise no clubbing, cyanosis, edema, or lymphadenopathy appreciated. Skin: LLE as above, multiple tattoos otherwise normal temperature, turgor, and texture; no rash, ulcers, or subcutaneous nodules appreciated. Neurological: Cranial nerves grossly intact. Normal muscle strength, tone, and bulk. Psychiatric: Alert and oriented to person, place, and time. Lab and Diagnostics Result Diagram: 09/18/1662909/18/16629 Cardiac Echo Impressions Interpretation Summary The left ventricle is normal in size. The ejection fraction is estimated to be 60-65%. The right ventricle is normal in size and function. No significant valvular pathology seen. No obvious valvular vegetation seen. Consider AVEL if clinical suspicion for endocarditis is high. The ascending aorta is mildly enlarged. Additional Diagnostics PROCEDURE: US VEINOUS LEG DUPLEX UNILATERAL, LEFT FINDINGS: The deep veins are normally compressible, and free of intraluminal thrombus. Color and pulse Doppler demonstrate normal phasic intraluminal flow. There is normal augmentation response to distal compression maneuver. There is significant edema in the lower leg with the calf vessels not well visualized. IMPRESSION: 1. No evidence of deep venous thrombosis in the left lower extremity. Dictated by: Clayton Gallegos M.D. on 09/16/2016 at 9:56 Assessment & Plan 55 years male, homeless, history of MRSA and heroin dependence with extensive left lower extremity cellulitis involving ankle up to above the knee. 1. Sepsis: Present on admission His heart rate was 100 on initial examination, his white cell count was 17,000, he has obvious infection of left lower extremity Procalcitonin elevated at 0.33 Lactic acid normal at 1.3 Blood cultures show single bottle positive with an positive cocci likely strep, ASO elevated at 722.9 Echocardiogram shows no obvious valvular vegetation and mildly enlarged ascending aorta. Left ventricular ejection fraction estimated to be 60-65%. IV hydration with normal saline at 100 mL per hour. 2. LE cellulitis/soft tissue infection, likely strep, Present on admission Morphine sulfate 1-2 mg IV every 4 hours when necessary to treat leg pain and will likely mitigate withdrawal symptom of heroine. Ultrasound shows no evidence of deep vein thrombosis in left lower extremity. Surgery consultation, Anterior left lower leg abscess to be drained this afternoon. Dalbavancin single dose Vancomycin and Zosyn discontinued Infectious disease consulting, we appreciate their input 3. 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 Patient was found preparing injection in his bathroom, visiting gentleman apparently was his supplier. Security removed drug and belongings from patient. Patient stated he uses heroine 3 times a day and injects into his neck. He states he has never injected into his leg. He started using 2 years ago. Methadone program discussed with patient upon admission, patient aware of inability to discharge from hospital with this medication. 4. Hypertension, present on admission, chronicity unknown Clonidine 0.1 mg every 6 hours Amlodipine 5mg daily 5. Tobacco abuse disorder, present on admission 40 pack year history Nicotine patch for smoking urge Lovenox for DVT prophylaxis. Pain Evaluation: Adequate Pain Control VTE Prophylaxis: Sub-Q Enoxaparin Resuscitation Status: CPR: Attempt Resuscitation Attending Statement The patient was seen and examined together with Dr. Leach on 09/18/2016 and I agree with the history, exam and plan as outlined in the note above. Krystle Leach DO Sep 18, 2016 08:17 Shahab Rodrigues MD Sep 26, 2016 13:56
--- NOTE | 2016-09-18 15:01 | CONS ---
[address] [address] CONSULTATION REPORT PATIENT: ARTHUR RANGEL : 1960 MR#: [id number] ADMIT: 09/15/2016 JOB ID: [id number] DATE OF SERVICE: 09/18/2016 CHIEF COMPLAINT: A 55-year-old gentleman with left lower extremity abscess seen in consultation at the request of Rosey Barrios D.O. HISTORY OF PRESENT ILLNESS: The patient is a 55-year-old gentleman who presented to the hospital on September 15, 2016 with pain and swelling in the left lower extremity for 2-3 days. He has history of heroin dependency and he reports currently injects himself in the neck but he denies injecting himself in the leg. He was diagnosed with left lower extremity cellulitis after doing an ultrasound to rule out DVT and was treated with antibiotics. He improved in terms of his white count but his leg infection evolved into more fluctuant swelling consistent with an abscess prompting a surgical consultation today. PRIOR MEDICAL PROBLEMS: 1. MRSA soft tissue infection. 2. Hypertension. PRIOR OPERATIONS: Cervical spine fusion. SOCIAL HISTORY: He has been smoking for 40 years. He does drink alcohol. He does use heroin. He lives in [place] reportedly with three dogs. REVIEW OF SYSTEMS: Twelve point review of systems negative other than the pertinent positives noted in the history of present illness and prior medical problems. ALLERGIES: 1. MORPHINE. 2. PENICILLIN. 3. ACETAMINOPHEN. 4. AMOXICILLIN. 5. CYCLOBENZAPRINE. 6. OXYCODONE. MEDICATIONS AT HOME: Amlodipine. CURRENT MEDICATIONS: 1. Clonidine. 2. Amlodipine. 3. Lisinopril. 4. Nicotine. 5. Lovenox. 6. Vancomycin. 7. Zosyn. INVESTIGATIONS: White blood cell count 11.9 today, down from 17.1 yesterday. Platelet count 435, hemoglobin 15.9, creatinine 0.71. PHYSICAL EXAMINATION: A 55-year-old male in no acute distress. Temperature 36.6, pulse 57, respiratory rate 24, blood pressure 144/80, saturating 97% on room air. Eyes: Normal pupils, conjunctivae. Ears, nose, and throat normal external appearance. Neck: No adenopathy or jugular venous distention. Respiratory: Normal effort, clear to auscultation. Cardiovascular: Regular rate and rhythm. Gastrointestinal: Abdomen is soft. Skin: About a 6 cm area of erythema and fluctuance on the anterior aspect of the left leg. Neurologic: No gross deficits. Psych: Alert, appropriate. Musculoskeletal: Normal strength in extremities. ASSESSMENT AND PLAN: Left lower extremity abscess. Discussed pathophysiology and treatment rationale and recommended incision and drainage. He understands the risks, is willing to change the dressings and he is interested in going home sooner than later.
--- NOTE | 2016-09-18 15:31 | NUR ---
Off Unit: Patient transported to OR via stretcher @ approx 1530. Telemetry removed, shelter monitor notified. VSS. No apparent distress noted at time of transport.
--- NOTE | 2016-09-18 15:47 | PCM.HPANE ---
Patient Data Date of Service: Sep 18, 2016 Surgeon Admitting Provider:Murali De La Torre MD Attending Provider:Murali De La Torre MD Primary Care Physician:Aaron Other Provider: Reason for Visit Cellulitis L Leg CELLULITIS L LEG Ht/WT & BMI Height (Feet): 6 Height (Inches): 1.00 Weight (Kilograms): 81.900 Body Mass Index 23.93 Allergies Coded Allergies: Morpholine Analogues (Verified Allergy, Unknown, 09/15/16) Penicillins (Verified Allergy, Unknown, 09/15/16) acetaminophen (Verified Allergy, Unknown, 09/15/16) amoxicillin (Verified Allergy, Unknown, 09/15/16) cyclobenzaprine (Verified Allergy, Unknown, 09/15/16) oxycodone (Verified Allergy, Unknown, 09/15/16) Diabetes History Hx Diabetes?: No Current Bedside Blood Glucose: 122 MRSA MRSA: No Medications Reported Medications Lisinopril 20 Mg [id number] Mg PO DAILY 30 Days Ref 0 09/15/16 Amlodipine 10 Mg [id number] Mg PO BID Ref 0 09/15/16 History History of ENT Problems?: No Hx of Heart Problems?: Yes Cardiovascular History: Positive for:: Hypertension Denies:: Congestive Heart Failure Hx of Respiratory Problem?: No Respiratory History: Denies:: Tuberculosis Hx Neurologic Problems?: No Neurological History: Positive for:: Headaches (migraines) Seizures (grand mal) Hx of GI Problems?: No Hx of Problems?: No Male Hx: Denies:: Prostate Problems Scrotal Mass Testicular Surgery Hx Musculoskeletal Problems?: Yes Musculoskeletal History: Positive for:: Back Injury (fused ) Hx of Psycho/Social Problems?: No Hx Surgeries?: Yes (Neck C5-C6) Hx Any Other Health Problems?: Yes History Blood Transfusions: Positive for:: Accept Blood Products? Denies:: Blood Transfuse Reaction Blood Transfusions Hx Diabetes: NoBedside Blood Glucose: 122 Hx Alcohol Use: YesHx Substance Use: Yes (cannibus) Smoking Status: Current Every Day Smoker Heavy Tobacco Smoker (near 40 yeas pack smoking) Have You Smoked inLast 12 mo: YesApprox How Many Cigarettes/day: 20 daily Stop/Bang Treated for Sleep Apnea?: No Do You Have a CPAP Machine?: No S-Snoring: Do You Snore Loudly: No T-Tired: feel tired, fatigued: No O-Obsered: Observed not breath: No P-Blood Pressure: treated: Yes B- Body Mass Index > 35 kg/m2: No A- Age over 50: Yes N- Neck Large Circumference: No G- Gender Male: Yes AGNES Total Score: 2 AGNES Risk Assessment: Low Risk, <3 Yes Risk Assessment Category Category 1A: Patient has history of documented sleep apnea, and HAS NOT received any narcotic, sedative or anesthesia administration during this stay. Category 1B: Patient has history of documented sleep apnea, and HAS received any narcotic , sedative or anesthesia administration during this stay Category 2: Patient has SUSPECTED Obstructive Sleep Apnea, and HAS received any narcotic , sedative or anesthesia administration during this stay. Category 3: Patient has SUSPECTED Obstructive Sleep Apnea and HAS NOT received narcotic, sedative or anesthesia administration during this stay. Category 4: Outpatient in Procedural Areas with known sleep apnea or who screen positive for High Risk via the STOP/BANG questionnaire. Exam Exam Vital Signs Vital Signs Date Time Temp Pulse Resp B/P Pulse Ox O2 Delivery O2 Flow Rate FiO2 09/18/16 13:43 37.0 63 22 154/79 98 Room Air 09/18/16 10:47 56 09/18/16 09:57 36.9 53 24 144/80 97 Room Air General Appearance: Alert, Oriented X3, Cooperative, Mild Distress HEENT/AIRWAY: MP 1 Lungs: Clear to Auscultation, Normal Air Movement Heart: Exam Unremarkable, Normal S1, Normal S2 Meds/Labs/Diagnostics Admission Meds Current Medications Dalbavancin/ Dextrose/Water (Dalvance Inj/ D5W) 500 ml @ 1,000 mls/hr ONCE ONCE IV Last administered on 09/17/16t 16:43; Start 09/17/16 at 16:00; Stop at 16:29; Status DC Bedside Blood Glucose: 122 Labs Test 09/15/16 00:30 09/17/16 00:52 09/17/16 05:34 09/18/16 06:30 Lactic Acid Level 1.3mmol/L (0.4-2.0) Vancomycin Level Trough 6.8mcg/mL Streptozyme 722.9IU/mL (0.0-200.0) Procalcitonin 0.11ng/mL (0.00-0.08) White Blood Count 11.9th/mm3 (3.8-10.1) Red Blood Count 5.54mil/mm3 (4.40-5.80) Hemoglobin 15.9g/dL (13.8-17.2) Hematocrit 45.2% (41.0-50.0) Mean Corpuscular Volume 81.6fL (81-100) Mean Corpuscular Hemoglobin 28.7pg (27.0-35.0) Mean Corpuscular Hemoglobin Concent 35.2% (32.0-37.0) Red Cell Distribution Width 14.0% (12.3-15.4) Platelet Count 435bil/L (150-400) Neutrophils (%) (Auto) 77.0% (40-74) Lymphocytes (%) (Auto) 13.0% (14-46) Monocytes (%) (Auto) 7.3% (4-12) Eosinophils (%) (Auto) 1.3% (0-5) Basophils (%) (Auto) 0.7% (0-3) Sodium Level 143mEq/L (134-144) Potassium Level 4.0mEq/L (3.5-5.2) Chloride Level 104mEq/L (97-108) Carbon Dioxide Level 20mmol/L (18-29) Blood Urea Nitrogen 5mg/dL (6-24) Creatinine 0.71mg/dL (0.76-1.27) Estimat Glomerular Filtration Rate 123mL/min (>59) Glucose Level 99mg/dL (60-99) Calcium Level 8.4mg/dL (8.5-10.1) Total Bilirubin 0.4mg/dL (0.0-1.2) Aspartate Amino Transf (AST/SGOT) 32U/L (0-50) Alanine Aminotransferase (ALT/SGPT) 23U/L (0-44) Alkaline Phosphatase 74U/L (25-150) Total Protein 7.0g/dL (6.4-8.4) Albumin 3.4g/dL (3.4-5.0) Plan Impression Patient chart reviewed, patient interviewed and anesthestic plan with risks, benefits, and alternatives discussed, and informed consent obtained. ASA Physical Status: ASA2 Plus Emergency Anesthetic Plan: GA Bene/Risks/Altern/Consents: Yes HP Complete Prior to Induction: Yes Fran Suggs DO Sep 18, 2016 15:47
[2016-09-18] MEDS ORDERED: Lactated Ringer's 1,000 ML IV ONE (15:51)
[2016-09-18] MEDS ORDERED: Bupivacaine-MPF 0.5% 30 mL Inj INFILTRATE ONE (16:16)
--- NOTE | 2016-09-18 16:20 | NUR ---
Social Work: Attempted CD assessment Data: DRIVER GUIDE attempted chemical dependency assessment with pt, but pt is currently in the OR. DRIVER GUIDE will attempt again on 09/19/16. BIANCA Hooper
--- NOTE | 2016-09-18 16:33 | PCM.ANEP1 ---
Post Anesthesia Phase 1 PACU Phase 1 Assessment Date of Service: Sep 18, 2016 Vital Signs Vital Signs Date Time Temp Pulse Resp B/P Pulse Ox O2 Delivery O2 Flow Rate FiO2 09/18/16 13:43 37.0 63 22 154/79 98 Room Air 09/18/16 10:47 56 09/18/16 09:57 36.9 53 24 144/80 97 Room Air Anesthetic Administered: GA Level of Alertness: Drowsy, not talking REDMAN's with Equal Strength: Yes Pain: No Pain Scale Score: 6 Nausea or Vomiting: No Oxygen Delivery: Simple Mask (6l) Lungs: Clear to Auscultation, Normal Air Movement Dermatome Level: Full Sensation Fran Suggs DO Sep 18, 2016 16:33
[2016-09-18] MEDS ORDERED: Lactated Ringer's 500 ML IV PRN (16:37)
[2016-09-18] MEDS ORDERED: Lactated Ringer's 1,000 ML IV SCH (16:37)
[2016-09-18] MEDS ORDERED: fentaNYL-PF 50 mCg/mL 2 mL Inj IVPUSH PRN (16:40)
[2016-09-18] MEDS ORDERED: EPHEDrine Sulfate 50 mg/mL Inj IVPUSH PRN (16:40)
[2016-09-18] MEDS ORDERED: Phenylephrine 10,000 mCg/mL Inj IVPUSH PRN (16:40)
[2016-09-18] MEDS ORDERED: HYDROmorphone 1 mg/mL Inj IVPUSH PRN (16:40)
--- NOTE | 2016-09-18 16:41 | PCM.ANEP2 ---
Post Anesthesia Evaluation ASA/CMS Post Anesthesia Date of Service: Sep 18, 2016 VS in Patient's Normal Range?: Yes Resp Stable; Airway Patent?: Yes CV Function & Hydration Stable: Yes Mental Status Recovered?: Yes Pain control Satisfactory?: Yes N/V Control Satisfactory?: Yes Fran Suggs DO Sep 18, 2016 16:41
--- NOTE | 2016-09-18 17:02 | PCM.SURGPO ---
Immediate Operative Note Date of Surgery: Sep 18, 2016 Pre Operative Diagnosis Left lower extremity abscess Post Operative Diagnosis Left lower extremity abscess Procedure Incision and drainage of left lower extremity abscess Surgeon and [employer] Worker Surgeon: Gloria Hopper MD Assistants: None Findings Excised a 3.5cm ellipse of skin to drain the abscess. Sent cultures Complications There were no periprocedural complications identified. Surgical Specimen Removed: Yes Specimen sent to Pathology: No Surgical Specimen description: Pus for culture Anesthetic Administered: GA Grafts, Implants: None Output, Estimated Blood Loss: 0 Blood Admin during surgery: No Gloria Hopper MD Sep 18, 2016 17:02
--- NOTE | 2016-09-18 17:22 | OP ---
[address] [address] OPERATIVE REPORT PATIENT: ARTHUR RANGEL : 1960 MR#: [id number] ADMIT: 09/15/2016 JOB ID: [id number] DATE OF SURGERY: 09/18/2016 PREOPERATIVE DIAGNOSIS(ES): Left lower extremity abscess. POSTOPERATIVE DIAGNOSIS(ES): Left lower extremity abscess. PROCEDURE PERFORMED: Incision and drainage of left lower extremity abscess. SURGEON: Gloria Hopper MD. ENGRAVER AUTOMATIC: None. COMPLICATIONS: None. INDICATIONS: The patient is a 55-year-old gentleman with history of heroin abuse and multiple infections in the past. Came in with left lower extremity cellulitis and was initially found to have no evidence of abscess, but after three days of antibiotics the infection has consolidated into a fluctuant swelling on the front of the leg. After discussing the risks, benefits, and alternatives, he was brought to the operating room today for incision and drainage. PROCEDURE DETAILS: He was placed in a supine position and underwent smooth induction of general anesthesia. The left anterior leg was prepped and draped in the usual sterile fashion. Surgical time-out was undertaken using safety checklist, and all were in agreement. I 1st aspirated the site over the most fluctuant aspect on the lateral aspect of the leg and sent fluid for culture. Then, made an incision with electrocautery getting into the subcutaneous space with the abscess. I then explored the abscess cavity, going medially and laterally, with suction and removed a 3.5 cm ellipse of skin to facilitate wound care. After ensuring there was no undrained pus and ensuring good hemostasis, I infiltrated the site with 0.5% bupivacaine and packed it with Kerlix and using the same to dress the wound. He was then recovered from anesthesia and was taken to the recovery room in stable condition.
[2016-09-19] VITALS (8 sets, daily range): BP systolic 131–181; BP diastolic 68–92; PULSE 55–86; RESP 18–22; O2SAT 96–100
[2016-09-19] MEDS: cloNIDine 0.1 mg Tablet PO SCH ×4 (02:55→20:02)
[2016-09-19 06:29] LABS: BASOPHILS % (AUTO) 0.8 % (0-3); EOSINOPHILS % (AUTO) 0.9 % (0-5); MONOCYTES % (AUTO) 9.8 % (4-12); Mean Corpuscular Hemoglobin 28.4 pg (27.0-35.0); Mean Corpuscular Volume 82.4 fL (81-100); NEUTROPHILS % (AUTO) 69.7 % (40-74); Platelet Count 445 bil/L (150-400)
--- NOTE | 2016-09-19 06:39 | NUR ---
Social work Pt using morphine for leg and back pain. Pt asked to have social work come and talk to him. He would like to get help with his heroin addiction. Pleasant and cooperative through the night.
[2016-09-19] MEDS: 0.9% Sodium Chloride 1,000 ML IV SCH (08:55)
[2016-09-19 11:07] LABS: Hepatitis A Antibody IgM Negative (Negative); Hepatitis B Core Antibody IgM Negative (Negative)
--- NOTE | 2016-09-19 11:44 | NUR ---
NUTRITION ASSESSMENT: ASSESS: 55 YO male admitted for left lower leg cellulitis. Pt is s/p I and D on 09/18 and wound consult is pending. Pt with variable po intake since admit. PMHx: Mrsa soft tissue infection, tobacco abuse, heroine dependence, HTN. LABS: Reviewed. Alb 3.2. MEDS: Reviewed. GI: BM x 3 (09/18) SKIN: L lower leg cellulitis s/p I and D, wound eval pending. CURRENT WT: 81.9 kg (bed scale) DIET: General. PO refusal - 100% x 4 days with po intake avg of ~40%. EST. NEEDS: 2550-9159 kcals (25-30 kcals/kg BW), 80-100 g protein (1.0-1.2 g/kg BW) NUTRITION DIAGNOSIS: 1.) Inadequate oral intake related to variable po intake as evidenced by po intake of 0-100% of meals x 4 days with po intake avg of only ~40%. NUTRITION INTERVENTION: 1.) Will add ensure BID to B and D trays. MONITOR / EVAL: PO intake, labs, wound eval, nutritional status. Follow per low nutritional risk guidelines.
--- NOTE | 2016-09-19 12:44 | PCM.PNMED ---
Subjective Date of Service Sep 19, 2016 Subjective This is a 55 year old male, with past medical history of MRSA, hypertension, heroine dependency, chronic tobacco abuse with a 40 pack smoking. He presented to the hospital with pain and swelling in the left lower extremity which has been going on for 3 days prior to admission. Left leg abscess was drained operating room yesterday. Feeling better this morning, he still has minimal appetite. Her ability to stop using heroin, this time she is not sure of the resources available to him. Exam Vital Signs Vital Sign - Last Date Time Temp Pulse Resp B/P Pulse Ox O2 Delivery O2 Flow Rate FiO2 09/19/16 06:55 86 09/19/16 05:09 36.6 22 181/92 99 Room Air 09/18/16 16:25 10 Intake and Output 09/18/16 09/18/16 09/19/16 Cumulative From/Thru 15:00 23:00 07:00 09/14/16 23:52 - 09/19/16 05:10 Intake Total 1287 ml 2600 ml 77163 ml Output Total 1115 ml 2450 ml 56061 ml Balance 172 ml 150 ml 2223 ml Intake Oral 837 ml 2600 ml 27183 ml IV Total 450 ml 8419 ml Output Urine Total 1115 ml 2450 ml 62890 ml Estimated Blood Loss 0 ml 0 ml # Bowel Movements 3 3 Exam General: No acute distress, well-developed, well-nourished HEENT: Normocephalic, atraumatic. External ears without defect. Anicteric sclerae, moist conjunctivae, and no lid lag. Neck: Supple with full range of motion. No jugular venous distension. Cardiovascular: Regular rate and rhythm with no murmurs, rubs, or gallops appreciated Pulmonary: Clear to auscultation bilaterally with no crackles, wheezes, or rhonchi. Normal respiratory effort with no use of accessory muscles. Abdomen: Bowel tones present. Soft, tender in LLQ with rebound tenderness, nondistended, no guarding. No hepatosplenomegaly or masses appreciated. Extremities: Left lower extremity wrapped with Kerlix, dressing dry and intact.No clubbing, cyanosis, edema, or lymphadenopathy appreciated. Skin: LLE as above, multiple tattoos otherwise normal temperature, turgor, and texture; no rash, ulcers, or subcutaneous nodules appreciated. Neurological: Cranial nerves grossly intact. Normal muscle strength, tone, and bulk. Psychiatric: Alert and oriented to person, place, and time. Lab and Diagnostics Result Diagram: 09/19/16 0553 09/19/16 0553 Cardiac Echo Impressions Interpretation Summary The left ventricle is normal in size. The ejection fraction is estimated to be 60-65%. The right ventricle is normal in size and function. No significant valvular pathology seen. No obvious valvular vegetation seen. Consider AVEL if clinical suspicion for endocarditis is high. The ascending aorta is mildly enlarged. Additional Diagnostics PROCEDURE: US VEINOUS LEG DUPLEX UNILATERAL, LEFT FINDINGS: The deep veins are normally compressible, and free of intraluminal thrombus. Color and pulse Doppler demonstrate normal phasic intraluminal flow. There is normal augmentation response to distal compression maneuver. There is significant edema in the lower leg with the calf vessels not well visualized. IMPRESSION: 1. No evidence of deep venous thrombosis in the left lower extremity. Dictated by: Clayton Gallegos M.D. on 09/16/2016 at 9:56 Assessment & Plan 55 years male, homeless, history of MRSA and heroin dependence with extensive left lower extremity cellulitis involving ankle up to above the knee. 1. Sepsis: Present on admission His heart rate was 100 on initial examination, his white cell count was 17,000, he has obvious infection of left lower extremity Procalcitonin elevated at 0.33 down to 0.22 Lactic acid normal at 1.3 Blood cultures show single bottle positive with an positive cocci likely strep, ASO elevated at 722.9 Echocardiogram shows no obvious valvular vegetation and mildly enlarged ascending aorta. Left ventricular ejection fraction estimated to be 60-65%. IV hydration with normal saline at 100 mL per hour. 2. LE cellulitis/soft tissue infection, likely strep, Present on admission IV Morphine sulfate 1-2 mg IV every 4 hours when necessary to treat leg pain and will likely mitigate withdrawal symptom of heroine. Ultrasound shows no evidence of deep vein thrombosis in left lower extremity. Surgery consultation, Anterior left lower leg abscess to be drained this afternoon. Dalbavancin single dose given Vancomycin and Zosyn discontinued Infectious disease consulting, we appreciate their input Drained and incised by Gen. surgery, we appreciate their assistance in this case. Wound care consultation, we appreciate their assistance in setting up outpatient wound care for this patient as he lives without running water and otherwise may have issues with contamination of the wound. 3. H/o Heroin abuse director of outpatient services consulted for homelessness and drug dependence Clonidine 0.1 mg every 6 hours to help with hypertension and also withdrawal. Patient was found preparing injection in his bathroom, visiting gentleman apparently was his supplier. Security removed drug and belongings from patient. Patient stated he uses heroine 3 times a day and injects into his neck. He states he has never injected into his leg. He started using 2 years ago. Methadone program discussed with patient upon admission, patient aware of inability to discharge from hospital with this medication. Social work following 4. Hypertension, present on admission, chronicity unknown Clonidine 0.1 mg every 6 hours Amlodipine 5mg daily 5. Tobacco abuse disorder, present on admission 40 pack year history Nicotine patch for smoking urge Lovenox for DVT prophylaxis. High risk medications:IV Morphine Pain Evaluation: Adequate Pain Control GI Prophylaxis: Not indicated VTE Prophylaxis: Sub-Q Enoxaparin Resuscitation Status: CPR: Attempt Resuscitation Krystle Leach DO Sep 19, 2016 06:59
--- NOTE | 2016-09-19 14:00 | NUR ---
Chemical Dependency Assessment Kojo Porter 09/19/2016 Current Circumstances: Pt is inpatient status for sepsis and cellulitis subsequent to IV heroin use. Hx of Use: Pt reported a history of substance use from the time he was 15 years old. Pt indicated that he used speed and ETOH until about two years ago when he switched to heroin. Pt explained that he has been injecting 1.5 grams of heroin on a daily basis for two years without any prior attempts at sobriety. Hx Treatment: Pt indicated that he has not engaged in any form of CD treatment. Hx of Withdrawal Symptoms: Pt reported that he experiences seizures, delirium, nausea, vomiting, GI distress, aches and pains while in withdrawal. Family Hx: Pt reported no family history of CD. Hx of Sobriety and Supports: Pt reported that he was clean for about 20 days while he was incarcerated recently. Pt indicated that it was very unpleasant and he has no desire to go through that again. Pt indicated that his family is unaware of his heroin use but explained that his SO is also wanting to stop using heroin and he has other friends who would be supportive of his efforts to stop using. Pt's perception of use. Pt reported that he wants to stop using heroin. Pt explained that he is using too much and he doesn't get high off of it anymore but he uses frequently to keep from going into withdrawal. Pt indicated that he was incarcerated for seven years from 1996 to 2002 for crimes related to his drug use and again for 20 days in the last few months. 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 Pt stated, "I can't do this anymore. I have to get off of the heroin. It treats my pain but nothing is worth this addiction." Suicide Risk Assessment: Pt denied current SI, HI and A/V H. Pt reported that his chronic pain caused him to experience SI at baseline prior to his heroin use. Pt explained that he has not wanted to kill himself since he started using heroin. Pt has risk factors but is not expressing a desire or intent to kill himself or harm others at this time. Recommendations for referral: Pt requested a list of local outpatient CD treatment providers. FENCE ERECTOR provided Pt with the requested resources and explained how to access services. Pt indicated that he intended to call and schedule an appointment with [facility] while he's in the hospital. Juany Fry, FENCE ERECTOR, AAC
--- NOTE | 2016-09-19 17:11 | PCM.PNSURG ---
Subjective Date of Service: Sep 19, 2016 Visit Information: LLE Abscess s/p I&D 09/18/2016 Post-Op Day # 1 Date of Admission: Sep 15, 2016 at 05:58 Hospital Day # 5 Subjective: feels better, anxious to go home Objective Vital Sign- Last 8 Hours Date Time Temp Pulse Resp B/P Pulse Ox O2 Delivery O2 Flow Rate FiO2 09/19/16 13:57 37.1 61 18 166/87 97 Room Air Intake and Output- Last 8 Hour 09/19/16 Cumulative From/Thru 07:00 09/14/16 23:52 - 09/19/16 05:10 Intake Total 2600 ml 14982 ml Output Total 2450 ml 50825 ml Balance 150 ml 2223 ml Intake Oral 2600 ml 48456 ml IV Total 8419 ml Output Urine Total 2450 ml 34374 ml Estimated Blood Loss 0 ml # Bowel Movements 3 SURGICAL WOUND : Wound Location/Description No erythema, some discharge in the wound bed. Changed dressing with Kerlix Result Diagram: 09/19/16 0553 09/19/16 0553 Assessment & Plan Impression Doing well Problems: Plan Wound care consult Needs outpatient care plan for dressing changes Please call with any questions Gloria Hopper MD Sep 19, 2016 17:10
--- NOTE | 2016-09-19 17:38 | NUR ---
Wound Wound evaluation order received, pt seen at bedside. 55 yo male with an anterior left lower leg wound secondary to I&D of abscess. Measures 3 cm L x 2 cm W x 0.5 cm deep. min erythema, min dried bloody drainage. Wound base is clean. Packing removed, wound cleaned with gauze and saline. Stable drained abscess. Instructed patient in wound hygiene and dressing changes using moist aquacell ag and mepilex dressing, pt to change q 48 to 72 hrs. F/U at wound center on discharge.
--- NOTE | 2016-09-19 18:06 | NUR ---
Shift note Cooperative pt, able to make needs known. On tele- SR 60s with PVCs. SBA d/t cellulitis in L [place]. IVF d/c. Great oral intake noted. Wound assessed pt. Bed in low position, upper 2 rails up, call light in reach.
[2016-09-19] MEDS: Ondansetron 2 mg/mL 2 mL Inj IVPUSH PRN (20:02)
[2016-09-20] MEDS: cloNIDine 0.1 mg Tablet PO SCH ×2 (02:16→07:42)
[2016-09-20 02:18] VITALS: BP 164/94; PULSE 51; RESP 16; O2SAT 96
--- NOTE | 2016-09-20 04:11 | NUR ---
Activity Pt remarked he was not feeling very good, nausea, zofran given with good results. Remained in bed except for occasional trip to bathroom. Morphine given for surgical wound on LLE at [place], also with good results. Pt cooperative with raymundo, mirna. Left room with call light at bedside.
[2016-09-20 05:40] VITALS: BP 156/89; PULSE 54; RESP 16; O2SAT 99
[2016-09-20 06:13] LABS: BASOPHILS % (AUTO) 0.5 % (0-3); EOSINOPHILS % (AUTO) 1.6 % (0-5); MONOCYTES % (AUTO) 8.2 % (4-12); Mean Corpuscular Hemoglobin 28.5 pg (27.0-35.0); Mean Corpuscular Volume 82.7 fL (81-100); NEUTROPHILS % (AUTO) 66.5 % (40-74); Platelet Count 463 bil/L (150-400)
[2016-09-20 08:00] VITALS: PULSE 61
[2016-09-20 09:44] VITALS: BP 147/85; PULSE 68; RESP 16; O2SAT 98
--- NOTE | 2016-09-20 11:45 | NUR ---
Social Work: Discharge Data: Pt is on day 5 of hospitalization. EMR reviewed. D/C orders are in. GRIP ASSEMBLER met with pt who states he would like the CD resources again because he lost the other sheet given. GRIP ASSEMBLER brought new CD resource list for pt who began dialing for [facility]. Pt declined any other needs. No other d/c planning needs identified. GRIP ASSEMBLER will continue to follow if needs arise. Assessment: Pt who is independent at baseline. Plan: Pt will d/c home via POV today. CD resources given. No other d/c planning needs identified. GRIP ASSEMBLER will continue to follow if needs arise. BIANCA Hooper
--- NOTE | 2016-09-20 12:27 | PCM.DIMED ---
Krystle Leach DO 09/20/16 1227: Discharge Instructions Date of Service Sep 20, 2016 Dates of Hospitalization Sep 15, 2016 at 05:58 Discharge Diagnosis Discharge Diagnosis 1. Left lower leg cellulitis 2. Sepsis, resolved 3. Hypertension 4. Tobacco use Medication Instructions Take pain medicine only as needed for pain in your left leg from surgical wound. Change your dressing 3-3 days. Diet No restrictions Activity No restrictions Call your provider Fever or Chills, Shortness of breath, Vomitting, Excessive diarrhea, Weakness ( unilateral) Patient Instructions Take it easy for the next couple of days, your leg will continue to heel. Dressing clean and dry changes at least every 2-3 days. More often if it gets wet of dirty. You will need to follow up with your primary care provider for results from your lab tests and follow up treatment as necessary. Follow-up plan Follow-up with wound care as directed. Follow-up with her primary care provider Follow-up Provider: Clayton Elliott MD Follow-up with PCP in: 1 week Provider: [facility] Follow-up in: 1 week Arnel Hdez MD 09/20/16 1612: Discharge Instructions Attending's Statement The patient was seen and examined together with Dr. Leach on 09-20-16 and I agree with the history, exam and plan as outlined in the note above. Krystle Leach DO Sep 20, 2016 12:27 Arnel Hdez MD Sep 20, 2016 16:12
[2016-09-20] MEDS ORDERED: [UNRECOGNIZED DRUG - CODE] PO (12:38)
--- NOTE | 2016-09-20 14:10 | NUR ---
Discharge Pt d/c home with mom and dad at 1335 via wc by an aide. New bandage applied to LLE, education and supplies for first few changes provided to pt. Number to rehab provided by [facility]. Pt also encouraged to contact wound care for outpatient treatment. Pt medicated for pain prior to leaving. Peripheral IV d/c. Discharge info discussed with pt privately and strongly encouraged to f/u with PCP re new dx. Number to MD provided on discharge. All personal belongings taken by pt.
--- NOTE | 2016-09-21 19:11 | PCM.DC.MED ---
Discharge Summary Date of Service Sep 21, 2016 Dates of Hospitalization Date of Hospital Admission Sep 15, 2016 at 05:58 Date of Discharge: Sep 19, 2016 Providers: Admitting Physician: Murali De La Torre MD Primary Care Physician: Aaron Attending Physician: Murali De La Torre MD Diagnosis at Time of Discharge Diagnosis at Time of Discharge 1. Left lower leg cellulitis 2. Sepsis, resolved 3. Hypertension 4. Tobacco use 5. Hepatitis C 6. Heroin use Consultations Infectious disease, Dr. Gordon Procedures Cardiac Echo Impression Interpretation Summary The left ventricle is normal in size. The ejection fraction is estimated to be 60-65%. The right ventricle is normal in size and function. No significant valvular pathology seen. No obvious valvular vegetation seen. Consider AVEL if clinical suspicion for endocarditis is high. The ascending aorta is mildly enlarged. Other Diagnostics PROCEDURE: US VEINOUS LEG DUPLEX UNILATERAL, LEFT FINDINGS: The deep veins are normally compressible, and free of intraluminal thrombus. Color and pulse Doppler demonstrate normal phasic intraluminal flow. There is normal augmentation response to distal compression maneuver. There is significant edema in the lower leg with the calf vessels not well visualized. IMPRESSION: 1. No evidence of deep venous thrombosis in the left lower extremity. Dictated by: Clayton Gallegos M.D. on 09/16/2016 at 9:56 Brief History History of present illness on admission: This is a 55 his old male, with past medical history of MRSA, hypertension, heroine dependency, chronic tobacco abuse with a 40 pack smoking. He presented to the hospital with pain and swelling in the left lower extremity which has been going on for 2-3 days or so. Patient soundly have an extensive cellulitis on the left lower extremity from ankle to above the knee. Associated symptoms include chills, subjective fever. Patient denies chest pain , shortness of breath, abdominal pain, no nausea, no vomiting ER workup revealed a leukocytosis of 17,000. Patient is acutely ill with clinical symptom of sepsis and being admitted to the hospital for appropriate care. Patient is homeless. On arrival to the floor, patient was caught by nursing staff preparing a heroine injection. Security was notified and the material and were taken away from him. Patient admits to at least 3 times today heroine injection for many years. Hospital Course 55 years male, homeless, history of MRSA and heroin dependence with extensive left lower extremity cellulitis involving ankle up to above the knee. 1. Sepsis: Present on admission His heart rate was 100 on initial examination, his white cell count was 17,000, he has obvious infection of left lower extremity Procalcitonin elevated at 0.33 down to 0.22 Lactic acid normal at 1.3 Blood cultures show single bottle positive with an positive cocci likely strep, ASO elevated at 722.9 Echocardiogram shows no obvious valvular vegetation and mildly enlarged ascending aorta. Left ventricular ejection fraction estimated to be 60-65%. IV hydration with normal saline at 100 mL per hour. 2. LE cellulitis/soft tissue infection, likely strep, Present on admission IV Morphine sulfate 1-2 mg IV every 4 hours when necessary to treat leg pain and will likely mitigate withdrawal symptom of heroine. Ultrasound shows no evidence of deep vein thrombosis in left lower extremity. Surgery consultation, Anterior left lower leg abscess to be drained this afternoon. Dalbavancin single dose given Vancomycin and Zosyn discontinued Infectious disease consulting, we appreciate their input Drained and incised by Gen. surgery, we appreciate their assistance in this case. Wound care consultation, we appreciate their assistance in setting up outpatient wound care for this patient as he lives without running water and otherwise may have issues with contamination of the wound. 3. H/o Heroin abuse volunteer services manager consulted for homelessness and drug dependence Clonidine 0.1 mg every 6 hours to help with hypertension and also withdrawal. Patient was found preparing injection in his bathroom, visiting gentleman apparently was his supplier. Security removed drug and belongings from patient. Patient stated he uses heroine 3 times a day and injects into his neck. He states he has never injected into his leg. He started using 2 years ago. Methadone program discussed with patient upon admission, patient aware of inability to discharge from hospital with this medication. Social work following 4. Hypertension, present on admission, chronicity unknown Clonidine 0.1 mg every 6 hours Amlodipine 5mg daily 5. Tobacco abuse disorder, present on admission 40 pack year history Nicotine patch for smoking urge 6. Hepatitis C, present on admission, newly diagnosed Hepatitis C antibody greater than 11 Hepatitis C virus quantity and genotype ordered but not resulted at the time of discharge. Primary care will need to follow up with this and referred to gastroenterology for treatment if necessary. High risk medications:IV Morphine Exam Vital Signs (Last) Date Time Temp Pulse Resp B/P Pulse Ox O2 Delivery O2 Flow Rate FiO2 09/20/16 09:44 37.1 68 16 147/85 98 Room Air 09/18/16 16:25 10 Exam General: No acute distress, well-developed, well-nourished HEENT: Normocephalic, atraumatic. External ears without defect. Anicteric sclerae, moist conjunctivae, and no lid lag. Neck: Supple with full range of motion. No jugular venous distension. Cardiovascular: Regular rate and rhythm with no murmurs, rubs, or gallops appreciated Pulmonary: Clear to auscultation bilaterally with no crackles, wheezes, or rhonchi. Normal respiratory effort with no use of accessory muscles. Abdomen: Bowel tones present. Soft, tender in LLQ with rebound tenderness, nondistended, no guarding. No hepatosplenomegaly or masses appreciated. Extremities: Left lower extremity wrapped with Kerlix, dressing dry and intact.No clubbing, cyanosis, edema, or lymphadenopathy appreciated. Skin: LLE as above, multiple tattoos otherwise normal temperature, turgor, and texture; no rash, ulcers, or subcutaneous nodules appreciated. Neurological: Cranial nerves grossly intact. Normal muscle strength, tone, and bulk. Psychiatric: Alert and oriented to person, place, and time. Test 09/15/16 00:30 09/17/16 00:52 09/17/16 05:34 09/18/16 06:30 Lactic Acid Level 1.3mmol/L (0.4-2.0) Vancomycin Level Trough 6.8mcg/mL Streptozyme 722.9IU/mL (0.0-200.0) Procalcitonin 0.11ng/mL (0.00-0.08) Hepatitis A IgM Antibody Negative (Negative) Hepatitis B Surface Antigen Negative (Negative) Hepatitis B Core IgM Antibody Negative (Negative) Hepatitis C Antibody >11.0s/co ratio Hepatitis C Antibody Comment Comment (.) HIV (1&2) Ag and Ab, 4th Generation Non reactive (Non Reactive) Test 09/20/16 05:45 09/20/16 08:55 White Blood Count 8.8th/mm3 (3.8-10.1) Red Blood Count 5.20mil/mm3 (4.40-5.80) Hemoglobin 14.8g/dL (13.8-17.2) Hematocrit 43.0% (41.0-50.0) Mean Corpuscular Volume 82.7fL (81-100) Mean Corpuscular Hemoglobin 28.5pg (27.0-35.0) Mean Corpuscular Hemoglobin Concent 34.4% (32.0-37.0) Red Cell Distribution Width 13.8% (12.3-15.4) Platelet Count 463bil/L (150-400) Neutrophils (%) (Auto) 66.5% (40-74) Lymphocytes (%) (Auto) 21.6% (14-46) Monocytes (%) (Auto) 8.2% (4-12) Eosinophils (%) (Auto) 1.6% (0-5) Basophils (%) (Auto) 0.5% (0-3) Sodium Level 141mEq/L (134-144) Potassium Level 4.4mEq/L (3.5-5.2) Chloride Level 103mEq/L (97-108) Carbon Dioxide Level 23mmol/L (18-29) Blood Urea Nitrogen 7mg/dL (6-24) Creatinine 0.77mg/dL (0.76-1.27) Estimat Glomerular Filtration Rate 112mL/min (>59) Glucose Level 100mg/dL (60-99) Calcium Level 8.8mg/dL (8.5-10.1) Total Bilirubin 0.3mg/dL (0.0-1.2) Aspartate Amino Transf (AST/SGOT) 43U/L (0-50) Alanine Aminotransferase (ALT/SGPT) 45U/L (0-44) Alkaline Phosphatase 73U/L (25-150) Total Protein 7.2g/dL (6.4-8.4) Albumin 3.7g/dL (3.4-5.0) Discharge Medications Discharge Medications Amlodipine (Amlodipine) 10 Mg Tablet 10 MG PO BID (Reported) Lisinopril (Lisinopril) 20 Mg Tablet 20 MG PO DAILY (Reported) As needed Hydrocodone/Ibuprofen (Hydrocodone-Ibuprofen 10-200) 1 Each Tablet 1 EACH PO Q6H PRN PRN For Moderate Pain Prescribed by: ROSIBEL ALBERTS, DO Additional med instructions Take pain medicine only as needed for pain in your left leg from surgical wound. Change your dressing 3-3 days. Followup Plan Disposition: Discharge home Follow-up plan Follow-up with wound care as directed. Follow-up with her primary care provider Discharge Diet: No restrictions Discharge Activity: No restrictions Patient Instructions Take it easy for the next couple of days, your leg will continue to heel. Dressing clean and dry changes at least every 2-3 days. More often if it gets wet of dirty. You will need to follow up with your primary care provider for results from your lab tests and follow up treatment as necessary. Follow-up Provider: Clayton Elliott MD Follow-up with PCP in: 1 week Provider: [facility] Follow-up in: 1 week Attending Statement The patient was seen and examined together with Dr. Alberts on 09-20-16 and I agree with the history, exam and plan as outlined in the note above. please note that the date of discharge and the date of service for this patient and note is 09/20/16. copies to: Sher Elliott MD, Erika R DO Sep 21, 2016 19:11 Arnel Hdez MD Sep 22, 2016 11:33
== END 2016-09-20 13:40 | disposition home or self-care (01) | DRG 854 ==
LOC: SED 23:41 → OBSVTOIN 09-15 05:58 → MPC 09-15 05:58
PROVIDERS: ADMIT Hospitalist; ATTEND Internal Medicine
PROC: 0J9P0ZZ Drainage of Left Lower Leg Subcutaneous Tissue and Fascia, Open Approach (ICD-10-PCS; principal; 2016-09-18 15:30)
DX: A41.9 Sepsis, unspecified organism (principal); L03.116 Cellulitis of left lower limb; F11.20 Opioid dependence, uncomplicated; I10 Essential (primary) hypertension; L02.416 Cutaneous abscess of left lower limb; Z86.14 Personal history of Methicillin resistant Staphylococcus aureus infection; F17.210 Nicotine dependence, cigarettes, uncomplicated; Z59.0 Homelessness

== ENCOUNTER 2016-09-21 22:22 | Emergency (ER) | payer OTHER ==
[~2016-09-21] VITALS: Ht 185.4 cm; Wt 82.0 kg
[~2016-09-21 22:22] MED LIST: AMLO10TA3 PO; LISI-567 PO; [UNRECOGNIZED DRUG - CODE] PO
[2016-09-21 22:29] VITALS: BP 128/76; PULSE 74; RESP 16; O2SAT 99
--- NOTE | 2016-09-21 22:42 | ED.REPORT ---
HPI-General Illness Date of Service Sep 21, 2016 ED Provider: Dr. Chi Ferreira MD A 55 year old male with a history of cellulitis and hypertension presents to the ED needing a dressing change. He notes lower left leg swelling that began yesterday. There was right marginated redness that was outlined in pen yesterday, this is faded and there is more widespread hazy redness. Patient was admitted to the hospital on 09/15 for cellulitis. He was discharged on 09/20 in good condition and is currently seeking repacking for the wound. Patient began to express concern when his leg became increasingly red and painful this morning. He denies any fever. Nursing Notes Stated Complaint: DRESSING CHANGE Chief Complaint: Skin Rash/Abscess Nursing Notes Reviewed: Yes Allergies: Coded Allergies: Morpholine Analogues (Verified Allergy, Unknown, 09/15/16) Penicillins (Verified Allergy, Unknown, 09/15/16) acetaminophen (Verified Allergy, Unknown, 09/15/16) amoxicillin (Verified Allergy, Unknown, 09/15/16) cyclobenzaprine (Verified Allergy, Unknown, 09/15/16) oxycodone (Verified Allergy, Unknown, 09/15/16) Scheduled Amlodipine (Amlodipine) 10 Mg Tablet 10 MG PO BID Lisinopril (Lisinopril) 20 Mg Tablet 20 MG PO DAILY Scheduled PRN Hydrocodone/Ibuprofen (Hydrocodone-Ibuprofen 10-200) 1 Each Tablet 1 EACH PO Q6H PRN PRN For Moderate Pain General Time Seen by MD: 22:41 Chief Complaint Other (Left Leg Redness) Hx Obtained From: Patient Arrived By: Walk-in Sudden in Onset?: No Onset Occurred: Yesterday Symptom Duration: Since onset Location: : Leg left Quality: Painful Radiation: : Does not radiate Severity: Current: Mild Severity: Maximum: Mild Pertinent Negative: Pt denies other symptoms Recent Healthcare: Recent doctor visit, Recent hospitalization Past Medical History Past Medical History Tetanus shot 06/20/2014 Bipolar Chronic neck and back pain Cellulitis of R arm Hypertension Reports: Hypertension Past Surgical History Neck surgery Debridement of ulcer Smoking History Current Every Day Smoker, Heavy Tobacco Smoker Social History Other Social History: Local resident Occupation Unemployed Ambulatory Status Independent Review of Systems Left leg pain and redness. Full Review of Systems Constitutional: Denies: Chills, Fever Respiratory: Denies: Shortness of breath GI: Denies: Nausea, Vomiting Musculoskeletal: Reports: Extremity pain (Lower left leg soreness) Skin: Reports Swelling Neurologic: Denies: Change LOC Complete sys rev & neg: except as marked. Physical Exam Vital Signs Vital Signs Date Time Temp Pulse Resp B/P Pulse Ox O2 Delivery O2 Flow Rate FiO2 09/21/16 23:33 62 20 124/73 95 Room Air 09/21/16 22:29 36.3 74 16 128/76 99 Room Air Initial VS: Reviewed Extremities: Vascular intact, Neuro intact, No swelling, No tenderness Psychiatric: Mood/affect normal, Behavior normal, Normal thought content General/Constitutional: Awake, Alert, No acute distress Head / Eyes: Atraumatic, Normocephalic ENT: Atraumatic, Airway patent Neck: Atraumatic, Supple Respiratory / Chest: Atraumatic, No respiratory distress Abdomen: Atraumatic, Soft Skin: Atraumatic, Warm, Dry Rash / Lesion Notes: LESION: 2 cm ulcer to the lower left leg that goes to the subcutaneous tissue Area is clean and dry Procedures Skin: Wound / Burn Check Location: Lower left leg Normal Wound / Burn Check: No apparent infection, No abscess / fluctuance Inspection Abnormal: Erythema at wound edges, Cellulitis present Packing: Present, Packing removed, New packing inserted Re-Eval/Medical Decision Med Decision/Clinical Course 55-year-old with a cellulitis and abscess on his leg presents a day after discharge needing dressing change. He had no available materials to change his dressing. The same silver impregnated dressing material he then dressed with prior discharge was obtained here and he was given enough to get him through the weekend. He has an appointment in the wound center on Friday. Discharged in stable condition. Time of Eval: 22:53 Patient Status: Condition improved Re-Evaluation/Progress Note: Patient is rechecked. Dressing is placed. All of the patient's questions are addressed. He understands and agrees with the treatment plan. Counseled Regarding: Diagnosis, Need for follow-up, When/why to return to ED Discharge & Departure Primary Impression: Ulcer of left lower leg Non-pressure ulcer stage: unspecified non-pressure ulcer stage Qualified Code : L97.929 - Non-pressure chronic ulcer of unspecified part of left lower leg with unspecified severity Additional Impression: Cellulitis of left leg Disposition: Home Discharge Condition All VS Reviewed: Yes Condition: Stable Additional Instructions: Follow-up on Friday as planned. Change your dressing as directed. Return if you develop fever or other signs of central infection. Referrals: [facility] (PCP) [facility] Scribe Attestation Portions of this note were transcribed by Ketan Guillen. I, Dr. Ferreira personally performed the history, physical exam and medical decision-making; I reviewed and confirmed the accuracy of the information in the transcribed note. Signed by: Jennifer Ramires, 09/22/16 0000. Chi Ferreira MD Sep 21, 2016 22:42 KETAN GUILLEN Sep 21, 2016 22:52
[2016-09-21 23:33] VITALS: BP 124/73; PULSE 62; RESP 20; O2SAT 95
== END 2016-09-21 23:33 | disposition home or self-care (01) ==
LOC: SED 22:22
DX: L97.929 Non-pressure chronic ulcer of unspecified part of left lower leg with unspecified severity (principal); L03.116 Cellulitis of left lower limb; I10 Essential (primary) hypertension; F17.200 Nicotine dependence, unspecified, uncomplicated; Z88.8 Allergy status to other drugs, medicaments and biological substances; Z88.0 Allergy status to penicillin; Z88.6 Allergy status to analgesic agent; Z88.1 Allergy status to other antibiotic agents; Z88.5 Allergy status to narcotic agent; Z48.01 Encounter for change or removal of surgical wound dressing